=== PATIENT | female | born 1980 | race Hispanic/Latino ===

== ENCOUNTER 2022-05-03 14:11 | Inpatient (IN) | payer BC ==
[2022-05-03] MEDS ORDERED: Lorazepam 2 MG/ML VIAL SLOW IVP PRN ×2 (14:16→14:19)
[2022-05-03] MEDS ORDERED: Calcium Gluc 4.6 MEQ/10 ML (100 MG/ML) SLOW IVP PRN ×2 (14:16→14:19)
[2022-05-03] MEDS ORDERED: Labetalol HCl 100 MG/20 ML VIAL SLOW IVP PRN ×2 (14:16→16:33)
[2022-05-03] MEDS: hydrALAZINE 20 MG/ML VIAL SLOW IVP PRN ×2 (14:26→14:55)
[2022-05-03] MEDS ORDERED: hydrALAZINE 20 MG/ML VIAL ONE (14:27)
[2022-05-03] MEDS: Magnesium Sulfate 20 gm/500 ml 20 GM/500 ML BAG IVPB SCH ×2 (14:32→23:52)
[2022-05-03] MEDS ORDERED: Magnesium Sulfate 20 gm/500 ml 20 GM/500 ML BAG ONE (14:33)
[2022-05-03] MEDS ORDERED: Labetalol HCl 100 MG/20 ML VIAL ONE (14:50)
[2022-05-03 15:17] LABS: #Basophils 0.1 10x3/uL (0.0-0.2); #Eosinphils 0.2 10x3/uL (0.0-0.5); %Basophils 0.8 % (0.0-2.0); %Monocytes 8.7 % (0.0-10.0); Hemoglobin 8.4 g/dL (12.0-15.5); Mean Corpuscular HGB CONC 29.6 g/dL (32.0-36.0); Mean Corpuscular Hemoglobin 19.6 pg (27.0-33.0); Mean Corpuscular Volume 66.4 fl (81.6-98.3); Mean Platelet Volume 10.8 fl (7.4-10.4); Platelet Count 491 10x3/uL (150-450); RBC Distribution Width 17.8 % (11.5-14.5); Red Blood Cell (RBC) Count 4.28 10x6/uL (3.90-5.03); White Blood Cell (WBC) Count 11.3 10x3/uL (3.5-10.5)
[2022-05-03 15:21] VITALS: BMI 48.3
[2022-05-03 15:21] LABS: ALT (SGPT) 11 U/L (8-55); AST (SGOT) 17 U/L (5-34); Albumin 3.8 g/dL (3.5-5.0); Alkaline Phosphatase 73 U/L (40-110); Anion Gap 14 mmol/L (10-20); BUN (Urea Nitrogen) 15 mg/dL (7.0-18.7); Bilirubin, Total 0.5 mg/dL (0.2-1.2); Calc. Creatinine Clearance 202 mL/min (70-130); Calcium 9.1 mg/dL (7.8-10.44); Carbon Dioxide 23 mmol/L (22-29); Chloride 105 mmol/L (98-107); Estimated GFR 107; Glucose 95 mg/dL (70-105); Potassium 4.5 mmol/L (3.5-5.1); Protein, Total 6.8 g/dL (6.0-8.3); Sodium 137 mmol/L (136-145); Uric Acid 7.1 mg/dL (2.6-6.0)
[2022-05-03] MEDS: Labetalol HCl 100 MG/20 ML VIAL SLOW IVP PRN ×2 (15:21→15:40)
[2022-05-03 15:57] LABS: Creatinine, Urine 153.78 mg/dL (47-110)
[2022-05-03] MEDS: Betamet Acet/Betamet Na Ph 30 MG/5 ML VIAL IM SCH (16:25)
[2022-05-03] MEDS ORDERED: Ondansetron PF 4 MG/2 ML Vial IVP SCH (17:45)
[2022-05-03] MEDS ORDERED: Labetalol HCl 100 MG/20 ML VIAL SLOW IVP SCH (18:00)
[2022-05-03 18:37] LABS: Poikilocytosis SLIGHT = 6-15 cells (100X) (0-5/hpf)
[2022-05-03 18:38] LABS: Microcytosis SLIGHT = 6-15 cells (100X) (0-5/hpf)
[2022-05-03 18:39] LABS: Anisocytosis SLIGHT = 6-15 cells (100X) (0-5/hpf); Giant Platelets SLIGHT; Hypochromia MODERATE=16-30 cells (100X) (0-5/hpf); Platelet Morphology Comment Appears Increased; Polychromasia SLIGHT = 2-3 cells (100X) (0-2/hpf)
[2022-05-03] MEDS ORDERED: Bicitra 30 ML UDCUP PO PRN (20:00)
[2022-05-03] MEDS ORDERED: Famotidine/PF 20 mg/2ml Vial SLOW IVP PRN (20:00)
[2022-05-03] MEDS ORDERED: hydrALAZINE 20 MG/ML VIAL SLOW IVP PRN ×2 (20:02→20:03)
[2022-05-03] MEDS ORDERED: CEFAZOLIN 1 GM VIAL ONE (20:05)
[2022-05-03] MEDS ORDERED: CEFAZOLIN 2 GM VIAL ONE (20:05)
[2022-05-03] MEDS ORDERED: Famotidine/PF 20 mg/2ml Vial ONE (20:10)
[2022-05-03] MEDS ORDERED: Poractant Alfa 240 MG/3 ML ONE (20:14)
[2022-05-03] MEDS ORDERED: NS w/ Oxytocin 30 units 500 ML IV SCH (20:15)
[2022-05-03] MEDS ORDERED: CEFAZOLIN 2 GM in Sodium Chloride 0.9% 100 ML IVPB SCH (20:15)
[2022-05-03] MEDS ORDERED: CEFAZOLIN 1 GM in Sodium Chloride 0.9% 100 ML IVPB SCH (20:15)
[2022-05-03] MEDS ORDERED: Succinylcholine 200 MG/10 ml SYRINGE FS ONE (20:16)
[2022-05-03] MEDS ORDERED: Dexamethasone 4 mg/ml Vial ONE (20:16)
[2022-05-03] MEDS ORDERED: Fentanyl 100 MCG/2 ML VIAL ONE (20:16)
[2022-05-03] MEDS ORDERED: Ondansetron PF 4 MG/2 ML Vial ONE (20:16)
[2022-05-03] MEDS ORDERED: PROPOFOL 20 ML ONE (20:16)
[2022-05-03] MEDS ORDERED: Lidocaine 1% PF 5 ML VIAL ONE (20:16)
[2022-05-03 20:23] LABS: SARS-CoV-2 NAA Rapid Test Not Detected (NotDetected)
[2022-05-03] MEDS ORDERED: Oxytocin 10 UNITS/ML VIAL ONE ×2 (20:27→20:48)
[2022-05-03] MEDS ORDERED: Meperidine HCl/PF 25 MG/ML VIAL SLOW IVP PRN (20:38)
[2022-05-03] MEDS ORDERED: Fentanyl 100 MCG/2 ML VIAL SLOW IVP PRN (20:38)
[2022-05-03] MEDS ORDERED: Ondansetron HCl/PF 4 MG/2 ML Vial IVP PRN (20:38)
[2022-05-03] MEDS ORDERED: Ondansetron PF 4 MG/2 ML Vial IVP PRN (20:39)
[2022-05-03] MEDS ORDERED: diphenhydrAMINE 50 MG/ML VIAL IVP PRN (20:39)
[2022-05-03] MEDS ORDERED: Naloxone HCl 0.4 mg/ml Vial IV PRN (20:39)
[2022-05-03] MEDS ORDERED: fentaNYL Citrate/PF 1,000 MCG in Sodium Chloride 0.9% 30 ML IV PRN (20:39)
[2022-05-03] MEDS ORDERED: diphenhydrAMINE 50 MG/ML VIAL IM PRN (20:39)
[2022-05-03] MEDS ORDERED: Zolpidem Tartrate 5 MG TAB PO PRN (20:39)
[2022-05-03] MEDS ORDERED: diphenhydrAMINE 25 MG CAP PO PRN (20:39)
[2022-05-03] MEDS ORDERED: Promethazine HCl 25 MG/ML VIAL IM PRN (20:39)
[2022-05-03] MEDS ORDERED: Communication Order-Pharmacy FS SCH (20:45)
[2022-05-03] MEDS ORDERED: Ketorolac Tromethamine 30 MG/ML VIAL IVP SCH (20:45)
[2022-05-03 20:51] LABS: Hep B Surf Ag Non-Reactive S/CO (NonReactive); Syphilis Antibody Nonreactive (Nonreactive); Syphilis Antibody Index 0.04 S/CO (<1.00 Non-Reactive)
[2022-05-03 20:59] LABS: HBSAg Index 0.18 S/CO (0-0.99)
[2022-05-03] MEDS: Labetalol HCl 200 MG TAB PO SCH (23:02)
[2022-05-04] MEDS ORDERED: HYDROcodone/Acetaminophen 5/325 mg Tablet PO PRN ×2 (07:23)
[2022-05-04] MEDS ORDERED: Lanolin Ointment 7 GM TUBE TOP PRN (07:23)
[2022-05-04] MEDS ORDERED: hydrALAZINE 20 MG/ML VIAL SLOW IVP PRN (07:23)
[2022-05-04] MEDS: NIFEdipine XL 30 MG TAB PO SCH (09:35)
[2022-05-04] MEDS: Labetalol HCl 200 MG TAB PO SCH ×2 (09:36→20:35)
[2022-05-04] MEDS: Magnesium Sulfate 20 gm/500 ml 20 GM/500 ML BAG IVPB SCH (09:39)
[2022-05-04] MEDS: Prenatal Vitamin 1 TAB PO SCH (14:02)
[2022-05-04] MEDS: Ibuprofen 800 MG TAB PO SCH (14:12)
[2022-05-04] MEDS: Enoxaparin Sodium 30 MG/0.3 ML SYRINGE SC SCH (14:14)
[2022-05-05] MEDS: Betamet Acet/Betamet Na Ph 30 MG/5 ML VIAL IM SCH (00:40)
[2022-05-05] MEDS: Ibuprofen 800 MG TAB PO SCH ×3 (00:40→18:31)
[2022-05-05 03:59] LABS: Mean Corpuscular Hemoglobin 19.6 pg (27.0-33.0); Mean Corpuscular Volume 65.3 fl (81.6-98.3); Mean Platelet Volume 11.2 fl (7.4-10.4); Platelet Count 396 10x3/uL (150-450); RBC Distribution Width 17.9 % (11.5-14.5); Red Blood Cell (RBC) Count 3.57 10x6/uL (3.90-5.03); White Blood Cell (WBC) Count 23.8 10x3/uL (3.5-10.5)
[2022-05-05] MEDS ORDERED: Boostrix 0.5 ML (Tdap) VIAL IM ONE (07:23)
[2022-05-05] MEDS: Labetalol HCl 200 MG TAB PO SCH ×2 (10:36→21:35)
[2022-05-05] MEDS: Prenatal Vitamin 1 TAB PO SCH ×2 (10:36→10:38)
[2022-05-05] MEDS: NIFEdipine XL 30 MG TAB PO SCH (10:38)
[2022-05-05] MEDS: Enoxaparin Sodium 30 MG/0.3 ML SYRINGE SC SCH (18:31)
[2022-05-06] MEDS: Ibuprofen 800 MG TAB PO SCH ×2 (01:17→02:07)
[2022-05-06] MEDS ORDERED: Ferrous Sulfate 325 MG TAB PO SCH (08:00)
[2022-05-06 08:07] VITALS: TEMP 98
[2022-05-06] MEDS: Prenatal Vitamin 1 TAB PO SCH (08:40)
[2022-05-06] MEDS: NIFEdipine XL 30 MG TAB PO SCH (08:40)
[2022-05-06] MEDS: Labetalol HCl 200 MG TAB PO SCH (08:41)
[2022-05-06 11:46] VITALS: BP 124/60
== END 2022-05-06 12:20 | disposition home or self-care (01) | DRG 788 ==
LOC: CSHLD/OP 14:11 → CSHLD 14:43 → CSHANTE 05-04 12:47
PROVIDERS: ADMIT Obstetrics & Gynecology; ATTEND Obstetrics & Gynecology
PROC: 10D00Z0 Extraction of Products of Conception, High, Open Approach (ICD-10-PCS; principal; 2022-05-04)
DX: O14.14 Severe pre-eclampsia complicating childbirth (principal); E66.01 Morbid (severe) obesity due to excess calories; O99.214 Obesity complicating childbirth; Z20.822 Contact with and (suspected) exposure to COVID-19; Z3A.25 25 weeks gestation of pregnancy; Z90.49 Acquired absence of other specified parts of digestive tract; Z79.82 Long term (current) use of aspirin; Z79.899 Other long term (current) drug therapy; O76 Abnormality in fetal heart rate and rhythm complicating labor and delivery; O90.81 Anemia of the puerperium; D50.9 Iron deficiency anemia, unspecified; Z37.0 Single live birth
CPT/HCPCS: 36415; 51702; 80053; 82570; 84156; 84550; 85025; 85027; 86780; 86850; 86900; 86901; 87340; 88307; J0360; J0690; J0702; J1100; J1650; J2405; J2590; J2704; J3010; J3475; J3490; S0028; U0002